=== PATIENT | male | born 1955 | race Caucasian/White ===

== ENCOUNTER 2019-11-19 21:13 | Emergency (ER) | payer OTHER, SELFPAY ==
[~2019-11-19] VITALS: Ht 172.7 cm; Wt 90.7 kg
[2019-11-19 21:16] VITALS: Ht 172.7 cm; Wt 90.7 kg
[2019-11-20 00:15] VITALS: BP 129/74
== END 2019-11-19 23:50 | disposition home or self-care (01) ==
LOC: ED 21:13
DX: B34.9 Viral infection, unspecified (principal); I10 Essential (primary) hypertension; E03.9 Hypothyroidism, unspecified; Z88.0 Allergy status to penicillin; Z20.828 Contact with and (suspected) exposure to other viral communicable diseases
CPT/HCPCS: Q0092; U0003-CS